=== PATIENT | male | born 2000 | race Caucasian/White ===

== ENCOUNTER 2024-04-23 01:45 | Emergency (ER) | payer BC, SELFPAY ==
[2024-04-23 01:57] VITALS: BP 141/72
[2024-04-23 02:17] VITALS: BMI 25.6
[2024-04-23 02:24] VITALS: BP 131/81
[2024-04-23 03:00] VITALS: BP 120/85
--- NOTE | 2024-04-23 03:14 | ED.GENMED ---
History of Present Illness
General
Chief Complaint: Throat Problem
Source: patient and family (Mother at bedside)
Exam Limitations: none
Time Seen by Provider: 04/23/24 03:04
Nursing documentation reviewed up to this point in time: agreed with
History of Present Illness
History of Present Illness:
This is a 23-year-old male with no significant past medical history who states tonight after lying down to bed he developed a sore throat, congestion that seem to worsen over the past few hours with onset of feeling that his throat was closing,
trouble breathing. Mom states home pulse ox was reading 85% with a heart rate of 140. He does admit to mild chills and aches. He took a dose of NyQuil at 10 PM. He complains of nausea but has had no vomiting.
Noted to be intermittently spitting phlegm but able to swallow well and has been swallowing water without difficulty.
He denies chest pain nor back pain, no headache. He does admit to feeling somewhat lightheaded. No dizziness.
No close contacts with similar symptoms.
He works full-time.
Takes no medicines on a daily basis.
Past History
Past History
ED Past Medical History: None
ED Past Surgical History: Orthopedic
Social History
Tobacco: Non-smoker
Alcohol: Occasional
Drug: None
Personal: Single
Living: with family
Employment: Employed
Family History
Family History: Other (Noncontributory)
Phy Exam
Physical Exam
Physical Exam:
GENERAL: 23-year-old male appears his stated age, awake and alert, pleasant, easily communicative and in no acute distress. Speech is clear. No stridor. Handling secretions well. Mother is accompanying. Oral temperature 99 �F
EYE: anicteric
NECK: Supple, nontender, no meningismus, no significant adenopathy.
ENT: posterior pharynx is mildly erythematous with mild to moderate clear to pearly postnasal drip. There is no edema, no exudate, no ulcerations. Oral mucosa is moist. TM clear b/l, nares have mildly boggy turbinates without rhinorrhea.
CARDIAC: Regular rate and rhythm. no murmur.
LUNGS: Clear breath sounds bilaterally, no acute respiratory distress, no wheezes/rales/rhonchi
ABDOMEN: Soft, nondistended, without focal tenderness, no r/g, no cvat. normoactive BS.
NEUROLOGICAL: Alert and oriented x3, no focal neuro deficits. Gait is caicedo and steady.
SKIN: Warm and dry, normal color, skin intact. No rash.
MUSCULOSKELETAL: No C/C/E. peripheral pulses are full and equal b/l. No palpable tenderness.
PSYCH: Normal and appropriate interaction.
Course
Orders/Labs/Results
Orders:
Orders
04/23/24 03:13
Ibuprofen [Motrin] 800 mg PO NOW STA
04/23/24 03:48
COVID-19 Antigen Urgent
Source: Nasal Swab
Influenza A+B Rapid Molecular Urgent
TASHI Source: Nasal Swab
Specimen Description:
Rapid Strep Group A Urgent
TASHI Source: Throat/Pharynx
Specimen Description:
Date Specimen was Collected: 04/23/24
Time Specimen was Collected: 03:38
Vital Signs
Initial and Last Documented VS:
Initial Vital Signs
Temp Pulse Resp BP Pulse Ox
98 F 84 20 141/72 100
04/23/24 01:57 04/23/24 01:57 04/23/24 01:57 04/23/24 01:57 04/23/24 01:57
Last Documented Vital Signs
Temp Pulse Resp BP Pulse Ox
98 F 68 16 119/80 93
04/23/24 01:57 04/23/24 05:00 04/23/24 05:00 04/23/24 04:02 04/23/24 05:00
MDM/Problems Addressed
Differential Diagnosis Includes:
Patient presents with acute onset of sore throat, congestion, mild cough, generalized aches with sensation that his throat is closing.
No associated itching nor redness, no facial swelling, nothing suggestive of acute allergic reaction. No change in voice, no stridor; nothing to suggest epiglottitis, posterior pharyngeal abscess.
He is noted to have low-grade fever, moderate posterior pharyngeal injection without edema, moderate pearly postnasal drip which I suspect is URI in nature. Must consider strep pharyngitis. Other consideration is COVID, influenza.
Lungs are clear to auscultation. Pulse ox is normal, no respiratory distress and he is tolerating oral fluids well.
No history of immunocompromise, no history of lung disease.
Will check rapid strep, influenza and COVID testing.
Will give ibuprofen for low-grade fever, throat pain.
Will continue oral fluids.
At this point no indication for laboratory studies nor imaging.
*Pulse Oximetry
Patient hypoxic: no
*Critical Care Note
Total Time (30-74mins, 75-104mins- exclusive of procedures): Not Applicable
Update Note
Update Note:
05:20
Patient feeling markedly improved. Sore throat has near resolved, tolerating oral fluids well. Resting comfortably.
Rapid strep is negative.
Influenza and COVID testing are negative.
I suspect viral URI/viral pharyngitis.
Recommend supportive measures, staying well-hydrated on a daily basis, elevating head of bed at nighttime. Humidifier or vaporizer at nighttime.
I have written a prescription for ibuprofen for as needed pain, fever.
Prompt follow-up with PCP for recheck.
ED Attending Note
-
Portions of this chart may have been created with voice recognition software.� Occasional wrong word or��sound alike� substitutions may have occurred due to the inherent limitations of voice recognition software.
Discharge Plan
Departure
Patient Disposition: Home (Routine Discharge)
Date of Disposition: 04/23/24
Time of Disposition: 05:22
Patient with high blood pressure during this ER visit?: No
Condition: Good
Discharge Problem:
Acute pharyngitis
Instructions: Sore Throat, Adult (DC), Upper respiratory infection in adults - Discharge instructions
Prescriptions:
New
ibuprofen 800 mg tablet
800 mg PO QIDPRN PRN (Reason: pain, fever) Qty: 30 0RF
Referrals:
NONE,* [Family Provider] - Call in 1-3 days for appt
Interventions
Interventions:
*Risk Screen - Suicide Last Done: 04/23/24 01:57
*General Assessment Last Done: 04/23/24 01:57
*Neglect/Abuse Screening Last Done: 04/23/24 01:57
ED- Fall Risk Assessment Last Done: 04/23/24 01:57
*ED COVID-19 Vaccine History Last Done: 04/23/24 01:57
*Nursing Disposition Last Done: 04/23/24 05:25
ED-EENT Assessment Last Done: 04/23/24 02:15
ED- Pulmonary Assessment Last Done: 04/23/24 02:15
Discharge Date and Time
Discharge Date/Time: 04/23/24 05:25
Print Language: MOROCCAN
[2024-04-23] MEDS: MOTRIN 800 MG PO (03:44)
[2024-04-23 04:02] VITALS: BP 119/80
[2024-04-23 04:13] LABS: COVID-19 Antigen Negative (Negative)
== END 2024-04-23 05:25 | disposition home or self-care (01) ==
LOC: EMR 01:45
PROVIDERS: EMERGENCY PHYSICIAN Emergency Medicine
DX: J02.9 Acute pharyngitis, unspecified (principal)
CPT/HCPCS: 99283; 87070; 87502; 87811; 87880